=== PATIENT | female | born 1985 | race Caucasian/White ===

== ENCOUNTER 2021-12-16 08:33 | Emergency (ER) | payer BC, OTHER ==
[2021-12-16 20:59] LABS: SARS-CoV-2 PCR by NAA DETECTED (NotDetected)
== END 2021-12-16 10:13 | disposition home or self-care (01) ==
LOC: CSHERS 08:33
DX: U07.1 COVID-19 (principal); J39.9 Disease of upper respiratory tract, unspecified; D64.9 Anemia, unspecified; K21.9 Gastro-esophageal reflux disease without esophagitis; F17.210 Nicotine dependence, cigarettes, uncomplicated
CPT/HCPCS: 87804; 99283; U0003; U0005